=== PATIENT | male | born 1955 | race Two or more races ===

== ENCOUNTER 2017-03-09 10:35 | Inpatient (IN) | payer MEDICAID ==
[~2017-03-09] VITALS: Ht 162.6 cm; Wt 73.5 kg
--- NOTE | 2017-03-09 10:48 | NUR ---
Patient is having a seizure at BS. Seizure precaution in place.
[2017-03-09] MEDS ORDERED: IV SET PRIMARY PUMP SET 1 EA INFUS.SET MC ONE ×4 (10:52→12:18)
[2017-03-09] MEDS ORDERED: ONDANSETRON HCL/PF 4 MG/2 ML VIAL ONE (10:52)
[2017-03-09] MEDS ORDERED: IV NS 0.9% 1,000 ML ONE ×3 (10:52→13:00)
[2017-03-09] MEDS ORDERED: LORAZEPAM INJ 2 MG/ML VIAL ONE (10:52)
[2017-03-09] MEDS ORDERED: LORAZEPAM INJ 2 MG/ML VIAL IV ONE (11:00)
[2017-03-09] MEDS ORDERED: IV NS 0.9% 1,000 ML IV ONE ×2 (11:00→12:30)
[2017-03-09] MEDS ORDERED: ONDANSETRON HCL/PF 4 MG/2 ML VIAL IVP ONE (11:00)
[2017-03-09] MEDS ORDERED: Thiamine 100 MG in IV D5W 50 ML IV SCH (11:00)
[2017-03-09] MEDS ORDERED: IV NS 0.9% 1,000 ML BAG IV ONE (11:00)
--- NOTE | 2017-03-09 11:00 | NUR ---
ASSUME PT CARE, POST SEIZURE W/ BLOOD COMING OUT OF THE MOUTH. ON MONITOR. TACHY AND HYPERTENSIVE. ON SEIZURE PRECAUTION. IVHL STABLISHED.
[2017-03-09 11:13] LABS: BASOPHILS # (AUTO) 0.1 /CMM (0.0-0.2); BASOPHILS % (AUTO) 0.6 % (0.0-2.0); HEMATOCRIT 41 % (39-51); HEMOGLOBIN 13.6 g/dL (13.5-17.5); LYMPHOCYTES # (AUTO) 0.9 /CMM (0.8-4.8); LYMPHOCYTES % (AUTO) 7.9 % (20.0-44.0); MEAN CORPUSCULAR HEMOGLOBIN 34 PG (26.0-33.0); MEAN CORPUSCULAR HGB CONC 33 g/dl (31.0-36.0); MEAN CORPUSCULAR VOLUME 102 fL (80-96); MONOCYTES # (AUTO) 1.4 /CMM (0.1-1.30); MONOCYTES % (AUTO) 11.5 % (2.0-12.0); NEUTROPHILS # (AUTO) 9.6 /CMM (1.8-8.9); PLATELET COUNT (AUTO) 129 /CMM (150-450); RDW COEFFICIENT OF VARIATION 13.3 (11.5-15.0); RED BLOOD CELL COUNT(AUTO) 3.99 MIL/uL (4.5-6.0)
[2017-03-09 11:23] LABS: CARBON DIOXIDE 15 mmol/L (21-32); CHLORIDE 101 mmol/L (98-107); CREATININE 1.2 mg/dL (0.6-1.3); GLUCOSE 211 mg/dL (74-106); POTASSIUM 3.1 mmol/L (3.5-5.1); SODIUM SERUM 143 mmol/L (136-145); UREA NITROGEN, BLOOD 7 mg/dL (7-18)
[2017-03-09] MEDS ORDERED: IV SET PRIMARY 1 EA INFUS.SET MC ONE (11:27)
--- NOTE | 2017-03-09 11:27 | NUR ---
PT TO RADIOLOGY FOR HEAD CT SCAN VIA [facility].
[2017-03-09 11:31] LABS: ACETAMINOPHEN 0 ug/ml (10-30); ALANINE AMINOTRANSFERASE 41 U/L (12-78); ALBUMIN 4.3 g/dL (3.4-5.0); ALCOHOL, BLOOD < 3 mg/dL (0-0); ALKALINE PHOSPHATASE 112 U/L (46-116); ASPARTATE AMINOTRANSFERASE 111 U/L (15-37); BILIRUBIN,DIRECT 0.2 mg/dL (0.0-0.2); SALICYLATE 1.8 mg/dL (2.8-20.0); TOTAL PROTEIN, SERUM 9.4 g/dL (6.4-8.2)
--- NOTE | 2017-03-09 12:02 | NUR ---
PAGED DR GIFFORD SALESPERSON AUTOMOBILES FOR PANEL.
[2017-03-09] MEDS ORDERED: POTASSIUM CL. PREMIX PERIPHER. 200 ML ONE (12:18)
[2017-03-09] MEDS: POTASSIUM CL. PREMIX PERIPHER. 50 ML IV SCH ×3 (12:34→17:12)
[2017-03-09 13:07] LABS: APPEARANCE,URINE Clear (CLEAR); BILIRUBIN,URINE Negative (NEGATIVE); BLOOD, URINE Trace-lysed Ery/uL (NEGATIVE); COLOR,URINE Yellow (YELLOW); KETONES,URINE Negative (NEGATIVE); LEUKOCYTE ESTERASE ,URINE Negative (NEGATIVE); NITRITE, URINE Negative (NEGATIVE); PH,URINE 5.5 (5.0-8.0); PROTEIN,URINE 100 mg/dl (NEGATIVE); UGLUCOSE Negative (NEGATIVE)
--- NOTE | 2017-03-09 13:10 | NUR ---
PATIENT ASSIGNED TO TELE 311-1, DX WITH SEIZURE, ACCEPTED BY DR DANIEL GIFFORD. RN REPORT CAN BE GIVEN TO TERELL
[2017-03-09 13:30] LABS: RBC,URINE 0-2 /HPF (0-2); SQUAMOUS EPITHELIAL CELL,UR Rare /HPF (None Seen)
[2017-03-09] MEDS ORDERED: LORAZEPAM INJ 2 MG/ML VIAL IVP PRN (13:30)
[2017-03-09] MEDS ORDERED: MAGNESIUM HYDROXIDE 30 ML UDC PO PRN (13:30)
[2017-03-09] MEDS ORDERED: ONDANSETRON HCL/PF 4 MG/2 ML VIAL IVP PRN (13:30)
[2017-03-09] MEDS ORDERED: Z GUARD REMEDY 2 OZ OINT TP PRN (13:30)
[2017-03-09] MEDS ORDERED: MAG HYDROX/AL HYDROX/SIMETH 30 ML UDC PO PRN (13:30)
[2017-03-09] MEDS ORDERED: ZOLPIDEM TARTRATE 5 MG TABLET PO PRN (13:30)
[2017-03-09] MEDS ORDERED: ACETAMINOPHEN 325 MG TABLET PO PRN (13:30)
[2017-03-09 13:31] LABS: BACTERIA,URINE Moderate /HPF (None Seen)
--- NOTE | 2017-03-09 13:36 | NUR ---
REPORT GIVEN TO TERELL MCNEIL. PT AWAITING TRANSFER TO FLOOR.
--- NOTE | 2017-03-09 14:30 | NUR ---
CHIEF MINISTER NOTES RECEIVED PT FROM E.R. STAFF, VIA RICKIE, ABLE TO AMBULATE TO BED, NOTED WITH STEADY GAIT, ALERT WITH PERIODS OF CONFUSION, ABLE TO SAY HER NAME AND AGE BUT UNABLE TO SAY HIS BIRTHDAY, NO SIGN OF PAIN, NOT IN DISTRESS, ABLE TO TOLERATE ROOM AIR, ASSISTED TO BED, MADE COMFORTABLE, ROOM SET UP ORIENTATION PROVIDED, VERBALIZED UNDERSTANDING, CALL LIGHT WITHIN REACH, SAFETY PRECAUTIONS OBSERVED.
[2017-03-09] MEDS: IV D5/0.45 NACL 1,000 ML IV PRN (16:04)
[2017-03-09] MEDS: LORAZEPAM INJ 2 MG/ML VIAL IVP PRN (16:05)
[2017-03-09 16:08] VITALS: BP 128/70
[2017-03-09] MEDS: ENOXAPARIN SODIUM 40 MG/0.4 ML DISP.SYRIN SQ SCH (16:38)
--- NOTE | 2017-03-09 18:27 | NUR ---
JAVA WEBSPHERE DEVELOPER NOTES PT IN BED, RESTING, ALERT, NO COMPLAINT OF PAIN, BREATHING PATTERN NORMAL, WITH PERIODS OF BEING FORGETFUL, MORE ALERT AND AWAKE NOW, ABLE FOLLOW CUES, IV FLUIDS INFUSING WELL, ASSISTED TO BATHROOM NEEDED, SEIZURE PRECAUTIONS OBSERVED, NEEDS ATTENDED.
--- NOTE | 2017-03-09 19:00 | NUR ---
MS RN INITIAL NOTE PT RECEIVED IN BED, NO S/S OF RESPIRATORY DISTRESS OR SOB. IV SITE INTACT WITH NO S/S OF INFILTRATION NOTED. SAFE ENVIRONMENT PROVIDED FREE OF CLUTTERS .BED IN LOCKED, LOW POSITION. CALL LIGHT WITHIN EASY REACH. WILL CONTINUE TO MONITOR.
[2017-03-09 20:00] VITALS: BP 119/64
[2017-03-10] VITALS: BP 129/62
[2017-03-10 04:00] VITALS: BP 112/65
[2017-03-10] MEDS: IV D5/0.45 NACL 1,000 ML IV PRN (05:17)
[2017-03-10 06:24] LABS: BASOPHILS % (AUTO) 0.2 % (0.0-2.0); EOSINOPHILS % (AUTO) 0.1 % (0.0-6.0); HEMATOCRIT 36 % (39-51); HEMOGLOBIN 12.5 g/dL (13.5-17.5); LYMPHOCYTES # (AUTO) 0.6 /CMM (0.8-4.8); LYMPHOCYTES % (AUTO) 7.1 % (20.0-44.0); MEAN CORPUSCULAR HEMOGLOBIN 35 PG (26.0-33.0); MEAN CORPUSCULAR HGB CONC 35 g/dl (31.0-36.0); MEAN CORPUSCULAR VOLUME 101 fL (80-96); MONOCYTES # (AUTO) 1.4 /CMM (0.1-1.30); NEUTROPHILS # (AUTO) 6.5 /CMM (1.8-8.9); NEUTROPHILS % (AUTO) 76.6 % (43.0-81.0); PLATELET COUNT (AUTO) 95 /CMM (150-450); RDW COEFFICIENT OF VARIATION 14.1 (11.5-15.0); RED BLOOD CELL COUNT(AUTO) 3.57 MIL/uL (4.5-6.0); WHITE BLOOD COUNT (AUTO) 8.4 K/uL (4.3-11.0)
--- NOTE | 2017-03-10 06:28 | NUR ---
MS RN CLOSING NOTES PATIENT COMFORTABLY ASLEEP AND EASILY AWAKEN, HEAD OF BED ELEVATED FOR BETTER LUNG EXPANSION ON TELE MONITOR SR 85, MAINTAINS NPO. ON D5 1/2 NS RUNNING AT 125CC/HR TOLERATING WELL. NOT APPARENT DISTRESS. SEIZURE PRECAUTION. AFEBRILE, ALL NURSING CARE NEEDS PROVIDED AND RENDERED, NEEDS ATTENDED AND ANTICIPATED, KEPT CLEAN AND DRY AND COMFORTABLE, GOOD SKIN CARE PROVIDED. FREQUENT VISUAL CHECK DONE FOR SAFETY Q2H, SAFE HAZARD FREE ENVIRONMENT PROVIDED. CALL LIGHT WITHIN EASY TO REACH, ON LOW BED AT ALL TIMES TO ENSURE SAFETY, WILL ENDORSE TO THE NEXT SHIFT CONTINUE PLAN OF CARE.
[2017-03-10 06:43] LABS: ALBUMIN 3.3 g/dL (3.4-5.0); BILIRUBIN,TOTAL 1.3 mg/dL (0.2-1.0); CALCIUM, SERUM 7.7 mg/dL (8.5-10.1); CREATININE 0.6 mg/dL (0.6-1.3); MAGNESIUM 1.7 mg/dL (1.8-2.4); PHOSPHORUS 2.6 mg/dL (2.5-4.9); TOTAL PROTEIN, SERUM 7.7 g/dL (6.4-8.2)
[2017-03-10 07:03] LABS: POTASSIUM 2.8 mmol/L (3.5-5.1)
--- NOTE | 2017-03-10 07:03 | NUR ---
LABS CALLED AND REPORTED K LEVEL, WILL ENDORSE TO THE NEXT AM RN. Burgos MADE AWARE
[2017-03-10] MEDS ORDERED: POTASSIUM CL. PREMIX PERIPHER. 50 ML IV SCH (07:30)
--- NOTE | 2017-03-10 07:30 | NUR ---
TELE/RN OPENING NOTES PT. IS IN BED A&OX3. PT. IS ON TELEMETRY MONITORING WITH HEART RHYTHM IN SINUS RHYTHM AT 95 BPM. PT. IS NPO AT THIS TIME. PT. IS ARMENIAN SPEAKING. NO SOB, BREATHING ON ROOM AIR UNLABORED. NO S/S OF ACUTE DISTRESS. PT. HAS IV FLUIDS RUNNING AT 125 ML/HR. BED IS IN LOW POSITION, 2 SIDE RAILS UP, BED ALARM ON, AND INSTRUCTED PT. TO USE CALL LIGHT FOR ASSISTANCE. WILL CONTINUE TO ASSESS AND MONITOR.
--- NOTE | 2017-03-10 07:45 | NUR ---
TELE/RN NOTES PT. IS A&OX3, AND SAID THAT HE CAN SWALLOW TABLETS MEDICATION. NOTIFIED MD, AND PT.'S NPO STATUS CHANGED TO REGULAR DIET. MD WAS NOTIFIED OF PT.'S POTASSIUM LEVEL 2.8. MD AWARE AND ORDERED POTASSIUM REPLACEMENT.
[2017-03-10 08:00] VITALS: BP 113/70
[2017-03-10] MEDS ORDERED: Potassium Chloride 20 MEQ in IV NS 0.9% 1,000 ML IV PRN (08:30)
[2017-03-10] MEDS: MULTIVITAMINS W-MINERALS 1 TAB TABLET PO SCH (08:49)
[2017-03-10] MEDS: THIAMINE HCL 100 MG TABLET PO SCH (08:50)
[2017-03-10] MEDS ORDERED: PANTOPRAZOLE 40 MG VIAL IV SCH (09:00)
[2017-03-10] MEDS: ENOXAPARIN SODIUM 40 MG/0.4 ML DISP.SYRIN SQ SCH (09:00)
--- NOTE | 2017-03-10 09:00 | NUR ---
TELE/RN NOTES PT. LEFT HAND IV WAS INFILTRATED WHEN ASSESSING IV LINE. NEW IV WAS STARTED ON RIGHT FOREARM GAUGE 20.
[2017-03-10 09:01] LABS: LYMPHOCYTES % (MANUAL) 8 % (16-48); MONOCYTES % (MANUAL) 11 % (0-11.0); NEUTROPHILS % (MANUAL) 81 (42-76)
[2017-03-10] MEDS: FOLIC ACID 1 MG TABLET PO SCH (09:13)
[2017-03-10] MEDS ORDERED: POTASSIUM CHLORIDE 20 MEQ TAB.PRT.SR PO ONE (09:30)
[2017-03-10] MEDS ORDERED: IV NS 0.9% 1,000 ML ONE (09:48)
[2017-03-10] MEDS ORDERED: SECONDARY IV SET 1 EA INFUS.SET MC ONE ×2 (09:49→13:08)
[2017-03-10] MEDS ORDERED: IV SET PRIMARY PUMP SET 1 EA INFUS.SET MC ONE (09:49)
[2017-03-10] MEDS ORDERED: CEFTRIAXONE 1 G in IV D5W 50 ML IV SCH (10:00)
[2017-03-10 12:00] VITALS: BP 125/77
--- NOTE | 2017-03-10 12:00 | NUR ---
TELE/RN NOTES PT.'S IV ON RIGHT FOREARM WAS PULLED OUT AND A NEW IV WAS STARTED ON LEFT FOREARM GAUGE 22 IS PATENT AND FLUSHES.
[2017-03-10] MEDS: LORAZEPAM INJ 2 MG/ML VIAL IVP PRN (13:47)
[2017-03-10] MEDS: Magnesium 1GM/D5W 100ML PREMIX 100 ML IV SCH ×2 (14:00→14:08)
[2017-03-10] MEDS ORDERED: Magnesium 1GM/D5W 100ML PREMIX 0 ML IV ONE (14:03)
[2017-03-10] MEDS: LEVETIRACETAM (250 MG) 250 MG TABLET PO SCH ×2 (14:56→23:33)
[2017-03-10 16:00] VITALS: BP 124/99
[2017-03-10] MEDS ORDERED: Magnesium 1GM/D5W 100ML PREMIX 100 ML IV ONE (16:00)
--- NOTE | 2017-03-10 16:00 | NUR ---
TELE/RN NOTES PER MD ORDER CHANGED MAGNESIUM IV FLUIDS TO ORAL AND ANTIBIOTICS IV TO ORAL DUE TO PT. HAS NO IV ACCESS AT THIS TIME.
--- NOTE | 2017-03-10 16:15 | NUR ---
TELE/RN NOTES PT. IS WITHOUT IV ACCESS MD IS AWARE. NEW ORDERS TO CHANGE IV MEDICATIONS TO PO.
--- NOTE | 2017-03-10 16:15 | NUR ---
TELE/RN NOTES PT. IS IN BED SIGNS OF BLEEDING ON BED SHEETS DUE TO A PULLED OUT LEFT FOREARM IV. BLEEDING WAS STOPPED, AND GAUZE APPLIED. MD WAS NOTIFIED, AND AWARE.
[2017-03-10] MEDS ORDERED: MAGNESIUM OXIDE 400 MG TABLET PO ONE (18:30)
[2017-03-10] MEDS ORDERED: MAGNESIUM OXIDE 400 MG TABLET PO SCH (18:30)
[2017-03-10] MEDS ORDERED: ONDANSETRON 4 MG TAB.RAPDIS PO PRN (19:00)
--- NOTE | 2017-03-10 19:00 | NUR ---
TELE/RN NOTES PT. HAS SINUS RHYTHM 93 BPM ON AIRCRAFT INSTRUMENT REPAIRER AT THIS TIME.
--- NOTE | 2017-03-10 19:20 | NUR ---
MS RN NOTES RECEIVED ON BED CONFUSED,TRYING TO GET OUT OF BED,WITH FOUL SMELL NOTED,APPEARS CONFUSED.TELE MONITOR WAS ON STAND BY,PATIENT PULLED IT OUT.ALSO SALINE LOCK WAS PULLED X3. AWARE,IV MEDS CONVERTED TO PO PER DAYSHIFT REPORT.WILL CONTINUE TO MONITOR STATUS.
--- NOTE | 2017-03-10 19:30 | NUR ---
TELE/RN CLOSING NOTES PT. IS IN BED A&OX3. PT. IS DIVEHI SPEAKING. NO SOB, BREATHING ON ROOM AIR UNLABORED. NO S/S OF ACUTE DISTRESS. TALKED TO DR. GIFFORD ABOUT CHANGING IV MEDICATIONS TO PO. BED IS IN LOW POSITION, 2 SIDE RAILS UP, AND INSTRUCTED PT. TO USE CALL LIGHT FOR ASSISTANCE. WILL ENDORSE REPORT TO MANAGER COMMUNICATION NURSE.
--- NOTE | 2017-03-10 20:30 | NUR ---
LACEWORKER NOTES TRANSFERRED TO ROOM 315-1,SITTER AT BEDSIDE FOR SAFETY.
--- NOTE | 2017-03-10 21:00 | NUR ---
FORKLIFT TECHNICIAN NOTES BED BATH ADMINISTERED BY SHIRAZ CARDOSO,TOLERATED WELL.NEGATIVE FOR SEIZURE ACTIVITY
--- NOTE | 2017-03-10 23:33 | NUR ---
SALES PROMOTION DIRECTOR NOTES DUE KEPPRA 500MG PO GIVEN,TAKEN WELL.
[2017-03-11 00:14] VITALS: BP 125/72
[2017-03-11] MEDS: LORAZEPAM 1 MG TABLET PO PRN ×6 (00:36→17:56)
--- NOTE | 2017-03-11 00:36 | NUR ---
SUPPLY CHAIN PLANNER NOTES APPEARS RESTLESS/ANXIOUS,ATIVAN 1MG PO GIVEN
--- NOTE | 2017-03-11 02:00 | NUR ---
SUPERVISOR SUNGLASSES NOTES STILL AWAKE,OFFERED SLEEPING INTERPRETED BY WALKER WELDON,PATIENT REFUSED
--- NOTE | 2017-03-11 03:00 | NUR ---
BRUISE TRIMMER NOTES LAYING ON BED AWAKE BUT CALM,SITTER GENICE AT BEDSIDE.
--- NOTE | 2017-03-11 05:19 | NUR ---
MS RN NOTES VERY ANXIOUS GETS OUT OF BED AND WALK OUT FROM THE ROOM ALL THE WAY TO THE NURSES STATION.MEDICATED WITH ATIVAN 1MG PO ORDERED FOR ANXIETY.
--- NOTE | 2017-03-11 07:01 | NUR ---
PRESSURE CONTROLLER NOTES MD VISIT SEEN BY DR GIFFORD,WITH ORDER TO GIVE ANOTHER ATIVAN 1MG PO FOR ANXIETY/CONFUSION,NOTED AND CATTIED OUT. Addendum: 03/11/17 at 0710 by ALEXUS BRUCE RN NOTED AND CARRIED OUT.
--- NOTE | 2017-03-11 07:10 | NUR ---
CHEF MANAGER NOTES REFUSED TELE BOX AT THIS TIME,PUT ON STANDBY.REMAINS CONFUSED,SITTER AT BEDSIDE FOR SAFETY.WILL CONTINUE TO MONITOR BEHAVIOR AND MANAGE ACCORDINGLY.WILL ENDORSE TO DAY NURSE FOR EVELYN.
--- NOTE | 2017-03-11 07:20 | NUR ---
SNAP SHEARER OPENING NOTES PT RECEIVED AWAKE IN BED IN NO ACUTE SIGNS OF DISTRESS. ALERT AND CONFUSED, REFUSED TELE-MONITORING FROM MAINTENANCE CONTROLLER, TRY TO CONVINCED TO PUT THIS MORNING BUT STILL REFUSING, NO S/S OF CHEST PAIN OBSERVED OR VOICED. PT HAS NO IV ACCESS, MD AWARE. ALL IV MEDS CONVERTED TO P.O. ROOM FREE OF CLUTTERS, BED IN LOCKED AND LOW POSITION. CALL LIGHT WITHIN EASY REACH. ALL SAFETY AND SEIZURE PRECAUTIONS MAINTAINED. WILL CONTINUE TO MONITOR ACCORDINGLY.
[2017-03-11 07:42] LABS: EOSINOPHILS % (AUTO) 0.1 % (0.0-6.0); HEMATOCRIT 39 % (39-51); HEMOGLOBIN 13.5 g/dL (13.5-17.5); LYMPHOCYTES # (AUTO) 0.8 /CMM (0.8-4.8); MEAN CORPUSCULAR HEMOGLOBIN 35 PG (26.0-33.0); MEAN CORPUSCULAR HGB CONC 35 g/dl (31.0-36.0); MEAN CORPUSCULAR VOLUME 101 fL (80-96); MONOCYTES # (AUTO) 1.5 /CMM (0.1-1.30); MONOCYTES % (AUTO) 15.5 % (2.0-12.0); NEUTROPHILS # (AUTO) 7.1 /CMM (1.8-8.9); NEUTROPHILS % (AUTO) 75.4 % (43.0-81.0); PLATELET COUNT (AUTO) 117 /CMM (150-450); RED BLOOD CELL COUNT(AUTO) 3.83 MIL/uL (4.5-6.0); WHITE BLOOD COUNT (AUTO) 9.4 K/uL (4.3-11.0)
[2017-03-11 08:06] LABS: CALCIUM, SERUM 8.7 mg/dL (8.5-10.1); CREATININE 0.6 mg/dL (0.6-1.3); MAGNESIUM 1.8 mg/dL (1.8-2.4)
[2017-03-11] MEDS: THIAMINE HCL 100 MG TABLET PO SCH (08:17)
[2017-03-11] MEDS: LEVETIRACETAM (250 MG) 250 MG TABLET PO SCH ×2 (08:17→21:35)
[2017-03-11] MEDS: FOLIC ACID 1 MG TABLET PO SCH (08:17)
[2017-03-11] MEDS: PANTOPRAZOLE 40 MG TABLET.DR PO SCH (08:17)
[2017-03-11] MEDS: MULTIVITAMINS W-MINERALS 1 TAB TABLET PO SCH (08:22)
[2017-03-11] MEDS: ENOXAPARIN SODIUM 40 MG/0.4 ML DISP.SYRIN SQ SCH (08:24)
--- NOTE | 2017-03-11 09:27 | NUR ---
RN NOTES PATIENT NOTED CONFUSED, STANDING UP IN HIS BED AND WALKS AROUND HIS ROOM. SITTER AT BEDSIDE FOR CLOSE SUPERVISION. PRN ATIVAN 1MG PO GIVEN. WILL CONTINUE TO MONITOR PT'S BEHAVIOR.
--- NOTE | 2017-03-11 10:02 | NUR ---
RN NOTES PATIENT WITH LOW K 3.0, MD MADE AWARE WITH ORDER TO GIVE K-DUR 40MG. WILL CONTINUE TO MONITOR
[2017-03-11 10:21] LABS: BAND % (MANUAL) 1 % (0.0-5.0); LYMPHOCYTES % (MANUAL) 5 % (16-48); MONOCYTES % (MANUAL) 8 % (0-11.0); NEUTROPHILS % (MANUAL) 86 (42-76)
[2017-03-11] MEDS ORDERED: POTASSIUM CHLORIDE 20 MEQ TAB.PRT.SR PO ONE (10:30)
--- NOTE | 2017-03-11 11:22 | NUR ---
Social service consult requested by Dr. Magdaleno for homelessness. Pt. was admitted to [facility] for seizures due to alcohol withdrawal. SW is unable to assess pt. at this time due to pt. is altered. SW to follow up tomorrow to re-assess pt. when he is more alert and oriented.
--- NOTE | 2017-03-11 11:47 | NUR ---
RN NOTES PATIENT DISCONTINUED ON TELE-MONITORING. NO C/O PAIN , N & V. WILL CONTINUE TO MONITOR.
[2017-03-11] MEDS ORDERED: Thiamine 500 MG in IV D5W 50 ML IV SCH (12:00)
[2017-03-11] MEDS: LEVOFLOXACIN (750 MG) 750 MG TABLET PO SCH (12:18)
[2017-03-11 16:00] VITALS: BP 127/78
--- NOTE | 2017-03-11 17:53 | NUR ---
RN NOTES EEG DONE PER DR SIMON. WILL CONTINUE TO MONITOR
--- NOTE | 2017-03-11 19:05 | NUR ---
MS RN CLOSING NOTES PATIENT AWAKE IN BED WITH SITTER AT BEDSIDE. ALERT AND ORIENTED X 2. CONFUSED ON AND OFF DURING THE DAY. ON ROOM AIR, NO SOB NOTED. ALL DUE P.O MEDS GIVEN ORDERED AND TOLERATED. ALL NEEDS AND CARE PROVIDED WELL. CALL LIGHT WITHIN REACH. ALL SAFETY MEASURES MAINTAINED. WILL CONTINUE TO MONITOR.
--- NOTE | 2017-03-11 19:49 | NUR ---
MS/RN PATIENT BECAME VERY COMBATIVE AND AGITATED TRYING TO GET THE IV POLE, FIGHTING WITH THE SITTER, SAM SCOTT WAS CALLED, THE TEAM ARRIVED ON A TIMELY MANNER, PACIFIED THE PATIENT AND BROUGHT BACK TO BED. CALLED [facility] AND LEFT MESSAGE.
--- NOTE | 2017-03-11 19:53 | NUR ---
MS/RN DR. ERVIN CALLED WITH ORDERS RECEIVED. CARRIED OUT.
[2017-03-11 20:00] VITALS: BP 125/79
[2017-03-11] MEDS ORDERED: LORAZEPAM INJ 2 MG/ML VIAL IM/IV PRN (20:00)
--- NOTE | 2017-03-11 20:13 | NUR ---
MS/RN PATIENT STILL VERY AGITATED AND COMBATIVE, FIGHTING WITH THE SITTER, ATIVAN 1 MG IM WAS GIVEN ORDERED. WILL MONITOR.
[2017-03-11] MEDS ORDERED: LORAZEPAM INJ 2 MG/ML VIAL ONE (22:59)
--- NOTE | 2017-03-11 23:12 | NUR ---
MS/RN PATIENT IS VERY AGITATED AND COMBATIVE AT THIS TIME, ATIVAN 2 MG IM WAS GIVEN ORDERED. WILL CONTINUE TO MONITOR.
[2017-03-11] MEDS ORDERED: LORAZEPAM INJ 2 MG/ML VIAL IV ONE (23:30)
--- NOTE | 2017-03-12 00:02 | NUR ---
MS/RN PATIENT STILL RESTLESS, AGITATED AND COMBATIVE. WILL CONTINUE TO MONITOR.
--- NOTE | 2017-03-12 02:00 | NUR ---
MS/RN PATIENT SLEEPING, AROUSABLE, APPEAR COMFORTABLE, NO SIGNS OF DISTRESS NOTED, CALL LIGHT IN REACH. WILL CONTINUE TO MONITOR.
--- NOTE | 2017-03-12 06:20 | NUR ---
MS/RN PATIENT SLEEPING AT THIS TIME, APPEAR COMFORTABLE, BREATHING EVEN AND UNLABORED, ALL NEEDS ATTENDED AT THIS TIME. WILL CONTINUE TO MONITOR.
[2017-03-12 08:00] VITALS: BP 102/78
--- NOTE | 2017-03-12 08:00 | NUR ---
MS RN NOTES PATIENT IN BED RESTING NO SOB OR ACUTE DISTRESS NOTED. SITTER AT BEDSIDE. CALL LIGHT WITHIN REACH. PATIENT APPEARS CALM AND COOPERATIVE. BED IN LOW LOCKED POSITION. WILL CONTINUE TO MONITOR.
[2017-03-12] MEDS: PANTOPRAZOLE 40 MG TABLET.DR PO SCH (08:42)
[2017-03-12] MEDS: MULTIVITAMINS W-MINERALS 1 TAB TABLET PO SCH (08:42)
[2017-03-12] MEDS: LEVETIRACETAM (250 MG) 250 MG TABLET PO SCH ×2 (08:42→22:15)
[2017-03-12] MEDS: FOLIC ACID 1 MG TABLET PO SCH (08:42)
[2017-03-12] MEDS: ENOXAPARIN SODIUM 40 MG/0.4 ML DISP.SYRIN SQ SCH (08:43)
[2017-03-12 08:52] LABS: CALCIUM, SERUM 8.8 mg/dL (8.5-10.1); CREATININE 0.6 mg/dL (0.6-1.3); POTASSIUM 3.1 mmol/L (3.5-5.1)
--- NOTE | 2017-03-12 10:00 | NUR ---
MS RN NOTES PATIENT SEEN AND EVALUATED BY DR. LYNN ORDERS NOTED AND CARRIED OUT.
[2017-03-12] MEDS ORDERED: POTASSIUM CHLORIDE 20 MEQ TAB.PRT.SR PO ONE (11:00)
[2017-03-12] MEDS: LEVOFLOXACIN (750 MG) 750 MG TABLET PO SCH (12:08)
[2017-03-12] MEDS: THIAMINE HCL 100 MG TABLET PO SCH (12:08)
--- NOTE | 2017-03-12 15:10 | NUR ---
SW is unable to assess pt. due to pt. being disoriented. SW to follow up again tomorrow. According to case operator Kika, pt. is not homeless and lives with is and children.
[2017-03-12 16:00] VITALS: BP 121/78
[2017-03-12] MEDS ORDERED: HALOPERIDOL 5 MG TABLET PO PRN (16:30)
[2017-03-12] MEDS ORDERED: LORAZEPAM 1 MG TABLET PO SCH (17:00)
[2017-03-12] MEDS: BENZTROPINE MESYLATE (1 MG) 1 MG TABLET PO SCH (17:17)
[2017-03-12] MEDS: HALOPERIDOL 1 MG TABLET PO SCH (17:17)
--- NOTE | 2017-03-12 18:45 | NUR ---
MS RN NOTES PATIENT IN BED RESTING. NO SOB OR ACUTE DISTRESS NOTED. ALL DUE MEDICATIONS ADMINISTERED. ALL NEEDS MET. WILL ENDORSE CARE TO PM SHIFT.
[2017-03-12 20:00] VITALS: BP 109/62
--- NOTE | 2017-03-12 20:00 | NUR ---
MS/RN RECEIVE PATIENT IN BED AWAKE ALERT, ORIENTED TO NAME, CALM AND COMFORTABLE, NO SIGNS OF DISTRESS NOTED, SITTER AT BEDSIDE. WILL MONITOR.
--- NOTE | 2017-03-12 23:20 | NUR ---
MS/RN PATIENT IS SLEEPING AT THIS TIME, AROUSABLE, APPEAR COMFORTABLE, NO SIGNS OF DISTRESS NOTED, CALL LIGHT IN REACH. WILL CONTINUE TO MONITOR.
[2017-03-13 07:27] LABS: BASOPHILS % (AUTO) 0.1 % (0.0-2.0); EOSINOPHILS # (AUTO) 0.1 /CMM (0.0-0.7); EOSINOPHILS % (AUTO) 1.5 % (0.0-6.0); HEMATOCRIT 37 % (39-51); HEMOGLOBIN 12.8 g/dL (13.5-17.5); LYMPHOCYTES # (AUTO) 1.2 /CMM (0.8-4.8); LYMPHOCYTES % (AUTO) 18.6 % (20.0-44.0); MEAN CORPUSCULAR HEMOGLOBIN 35 PG (26.0-33.0); MEAN CORPUSCULAR HGB CONC 34 g/dl (31.0-36.0); MEAN CORPUSCULAR VOLUME 101 fL (80-96); MONOCYTES # (AUTO) 1.8 /CMM (0.1-1.30); MONOCYTES % (AUTO) 26.7 % (2.0-12.0); NEUTROPHILS # (AUTO) 3.5 /CMM (1.8-8.9); NEUTROPHILS % (AUTO) 53.1 % (43.0-81.0); PLATELET COUNT (AUTO) 167 /CMM (150-450); RDW COEFFICIENT OF VARIATION 13.8 (11.5-15.0); WHITE BLOOD COUNT (AUTO) 6.7 K/uL (4.3-11.0)
[2017-03-13 07:29] LABS: CALCIUM, SERUM 8.8 mg/dL (8.5-10.1); CREATININE 0.7 mg/dL (0.6-1.3); MAGNESIUM 1.7 mg/dL (1.8-2.4); PHOSPHORUS 4.5 mg/dL (2.5-4.9); POTASSIUM 3.9 mmol/L (3.5-5.1)
--- NOTE | 2017-03-13 07:43 | NUR ---
MS/RN PATIENT IS AWAKE, EATING BREAKFAST. ALL NEEDS ATTENDED.
[2017-03-13 08:00] VITALS: BP 119/75
--- NOTE | 2017-03-13 08:00 | NUR ---
MS RN NOTES PATIENT IN BED RESTING WITH SITTER AT BEDSIDE. NO SOB OR ACUTE DISTRESS NOTED. PATIENT WITH NO IV ACCESS, REFUSES IV ACCESS MD AWARE. PATIENT COOPERATIVE. BED IN LOW LOCKED POSITION. WILL CONTINUE TO MONITOR.
[2017-03-13] MEDS: BENZTROPINE MESYLATE (1 MG) 1 MG TABLET PO SCH (08:31)
[2017-03-13] MEDS: MULTIVITAMINS W-MINERALS 1 TAB TABLET PO SCH (08:31)
[2017-03-13] MEDS: PANTOPRAZOLE 40 MG TABLET.DR PO SCH (08:31)
[2017-03-13] MEDS: THIAMINE HCL 100 MG TABLET PO SCH (08:31)
[2017-03-13] MEDS: HALOPERIDOL 1 MG TABLET PO SCH (08:31)
[2017-03-13] MEDS: LEVETIRACETAM (250 MG) 250 MG TABLET PO SCH (08:32)
[2017-03-13] MEDS: FOLIC ACID 1 MG TABLET PO SCH (08:32)
[2017-03-13] MEDS: ENOXAPARIN SODIUM 40 MG/0.4 ML DISP.SYRIN SQ SCH (08:32)
[2017-03-13 08:53] LABS: LYMPHOCYTES % (MANUAL) 19 % (16-48); MONOCYTES % (MANUAL) 28 % (0-11.0); NEUTROPHILS % (MANUAL) 53 (42-76)
[2017-03-13] MEDS ORDERED: Magnesium 1GM/D5W 100ML PREMIX 100 ML IV SCH (11:33)
[2017-03-13] MEDS ORDERED: NITR100C6 PO (11:54)
[2017-03-13] MEDS ORDERED: BENZ1TAB7 PO (11:54)
[2017-03-13] MEDS ORDERED: LEVE250T2 PO (11:54)
[2017-03-13] MEDS ORDERED: HALO1TAB5 PO (11:54)
[2017-03-13] MEDS ORDERED: MAGNESIUM OXIDE 400 MG TABLET PO ONE (12:00)
[2017-03-13] MEDS: LEVOFLOXACIN (750 MG) 750 MG TABLET PO SCH (12:18)
--- NOTE | 2017-03-13 14:06 | NUR ---
MS RN NOTES PATIENT WITH ORDERS TO DISCHARGE HOME. NOTIFIED DR. VALERA PATIENT HAS NO PRESCRIPTION FOR MACROBID AND RICK, DR. VALERA STATES TO USE MED RECON FORM WITH HIS CHIVO NUMBER. COMPLETED MED RECON INCLUDED DR. SERNA CHIVO NUMBER. CHARGE NURSE MADE AWARE.
--- NOTE | 2017-03-13 15:24 | NUR ---
MS RN NOTES PATIENT PROVIDED PHARMACY PHONE NUMBER CALLED [facility]. SPOKE TO [facility] PHARMACIST. STATES MEDICATIONS WILL BE READY FOR PATIENT.
--- NOTE | 2017-03-13 15:46 | NUR ---
MS RN NOTES PATIENT DISCHARGED VIA TAXI. NO SOB OR ACUTE DISTRESS NOTED. MD AWARE OF ALL ABNORMAL LABS. DISCHARGE PROTOCOL FOLLOWED. PATIENT VERBALIZED UNDERSTANDING OF DISCHARGE INSTRUCTIONS VIA VISION IMPAIRED TEACHER. PATIENT SEEN MORE ALERT, HE IS ORIENTED X3. BELONGINGS ACCOUNTED FOR. SKIN INTACT. BELONGING LIST SIGNED. PRESCRIPTION WITH PATIENT. ALSO CALLED TO [facility] IN [place], PATIENT PROVIDED PHONE NUMBER. ID BAND REMOVED. LEFT VIA TAXI.
[2017-03-13] MEDS ORDERED: LORAZEPAM 1 MG TABLET PO PRN (17:00)
== END 2017-03-13 15:40 | disposition home or self-care (01) | DRG 775 ==
LOC: ER 10:37 → TELE 13:38 → MED 03-11 10:23
PROVIDERS: ADMIT Family Medicine; ATTEND Family Medicine
DX: F10.231 Alcohol dependence with withdrawal delirium (principal); G92 Toxic encephalopathy; N39.0 Urinary tract infection, site not specified; F29 Unspecified psychosis not due to a substance or known physiological condition; K21.9 Gastro-esophageal reflux disease without esophagitis; E87.6 Hypokalemia; Z59.0 Homelessness; Y90.0 Blood alcohol level of less than 20 mg/100 ml; D72.829 Elevated white blood cell count, unspecified; B95.2 Enterococcus as the cause of diseases classified elsewhere; F20.9 Schizophrenia, unspecified; G40.909 Epilepsy, unspecified, not intractable, without status epilepticus
CPT/HCPCS: 36415; 70450-TC; 71010-TC; 80048-TC; 80053-TC; 80076-TC; 80305; 81000-TC; 82140-TC; 83735-TC; 84100-TC; 85025-TC; 87081-TC; 87086-TC; 87186-TC; 95819-TC; 97001-TC; A4606; C9113; G0480; J0696; J1650; J2060; J2405; J3411; J3475; J3480; J3490; J7030; J7060; Z7610